=== PATIENT | male | born 1980 | race Caucasian/White ===

== ENCOUNTER 2021-01-22 18:48 | Emergency (ER) | payer OTHER ==
[~2021-01-22] VITALS: Ht 182.9 cm; Wt 134.4 kg
[~2021-01-22 18:48] MED LIST: HCTZ; NORCO 5-325 TA1 EACH PO; PHENERGAN 25 MG25 MG PO; ZANTAC
[2021-01-22 19:49] LABS: ABSOLUTE BASOPHILS 0.1 thou/uL (0.0-0.2); ABSOLUTE EOSINOPHILS 0.2 thou/uL (0.0-0.7); ABSOLUTE LYMPHOCYTES 2.9 thou/uL (0.8-5.3); ABSOLUTE MONOCYTES 0.6 thou/uL (0.0-1.2); ABSOLUTE NEUTROPHILS 4.5 thou/uL (1.6-8.1); BASOPHILS 0.9 %; EOSINOPHILS 2.3 %; HEMATOCRIT 46.2 % (42.0-52.0); HEMOGLOBIN 15.2 gm/dL (14.0-18.0); LYMPHOCYTES 35.1 %; MCH 27.6 pg (26.0-34.0); MCV 83.7 fL (80.0-100.0); MONOCYTES 7.8 %; MPV 7.8 fl. (7.2-11.1); NUCLEATED RBCS 0 /100WBC; PLATELET COUNT* 270 thou/uL (150-400); POLYS 53.9 %; RBC 5.52 mil/uL (4.50-6.00); RDW-CV 13.5 % (10.5-14.5); WBC 8.3 thou/uL (4.0-11.0)
[2021-01-22 20:05] LABS: ANION GAP 10 mmol/L (7-16); BUN 14 mg/dL (7-18); CALCIUM 9.2 mg/dL (8.5-10.1); CHLORIDE 106 mmol/L (98-107); CO2 27 mmol/L (21-32); CREATININE 1.4 mg/dL (0.6-1.3); GLUCOSE 118 mg/dL (70-99); POTASSIUM 3.9 mmol/L (3.5-5.1); SODIUM 143 mmol/L (136-145)
[2021-01-22 20:16] LABS: ALBUMIN 4.1 g/dL (3.4-5.0); ALKALINE PHOSPHATASE 58 U/L (46-116); MAGNESIUM 2.2 mg/dL (1.8-2.4); NT-PRO BRAIN NAT PEPTIDE < 5 pg/mL (<300); SGOT 22 U/L (15-37); SGPT 63 U/L (30-65); TOTAL BILIRUBIN 0.3 mg/dL (<0.1-1.0); TOTAL PROTEIN 7.1 g/dL (6.4-8.2)
[2021-01-22 22:13] VITALS: BP 132/88
--- NOTE | 2021-01-23 11:19 | EKG ---
[place] [address] ELECTROCARDIOGRAM REPORT Name: SANDRA FIGUEROA Room: [facility]#: [id number] Admission: 01/22/21 Attend Phys: Discharge: 01/22/21 Date of : 82 Date of Service: 01/22/21 1854 Report #: [id number] THIS REPORT FOR: //name// [facility] ED Test Date: 2021-01-22 Test Time: 18:54:20 Pat Name: SANDRA FIGUEROA Department: Room: Gender: [employer] Driver: [facility] : 1980 Requested By: Kaylee Burgess Order Number: [id number] MD: Blayne Corley Measurements Intervals [place] Rate: 79 P: 20 NH: 169 QRS: 51 QRSD: 102 T: 33 QT: 372 QTc: 427 Interpretive Statements Sinus rhythm Baseline wander in lead(s) II,III,aVF,V1 Compared to ECG 09/11/2008 13:26:33 No significant changes Electronically Signed On 01-23-2021 11:19:12 CDT by Blayne Corley [email or web address] <ELECTRONICALLY SIGNED> By: Blayne Corley MD, [facility] 01/23/21 1119 1854 1854 Blayne Corley MD, [facility] /EPI
== END 2021-01-22 22:13 | disposition home or self-care (01) ==
LOC: M.ERS 18:48
PROVIDERS: Nurse Practitioner Family
DX: E86.0 Dehydration (principal); R00.2 Palpitations; I10 Essential (primary) hypertension; G47.30 Sleep apnea, unspecified